=== PATIENT | male | born 1945 | race Caucasian/White ===

== ENCOUNTER → 2018-03-03 | Outpatient (CLI) | payer BC | LOC: COL.VAS 13:49 | DX: M79.89 Other specified soft tissue disorders (principal) ==

== ENCOUNTER 2020-03-20 15:43 | Inpatient (IN) | payer MEDICARE, BC ==
[~2020-03-20] VITALS: Ht 180.3 cm; Wt 83.2 kg
[2020-04-18] VITALS (11 sets, daily range): BP systolic 123–172; BP diastolic 51–80; PULSE 44–101; TEMP 98.3–98.6
[2020-04-18] MEDS ORDERED: COZAAR 50MG50 MG/TAB PO (09:06)
[2020-04-18] MEDS ORDERED: NORVASC 5MG5 MG/TAB PO (09:07)
[2020-04-18] MEDS ORDERED: PROTONIX 40MG T40 MG PO (09:08)
[2020-04-18] MEDS ORDERED: ZYRTEC 10MG10 MG PO (09:09)
[2020-04-18] MEDS ORDERED: SINGULAIR 110 MG/TAB PO (09:10)
[2020-04-18] MEDS ORDERED: ZOCOR 20MG20 MG PO (09:11)
[2020-04-18] MEDS ORDERED: CARDURA4 MG PO (09:11)
[2020-04-18] MEDS ORDERED: ZYLOPRIM 300MG300 MG PO (09:12)
[2020-04-18] MEDS ORDERED: FLONASEALLERGY NS (09:14)
[2020-04-18] MEDS ORDERED: MOBIC 7.5MG7.5 MG PO (09:15)
[2020-04-18] MEDS ORDERED: RT ADVAIR 228 DISKUS IH (09:15)
[2020-04-18] MEDS ORDERED: VTAMINC250TA PO (09:17)
[2020-04-18] MEDS ORDERED: IRON TABLETS325 MG PO (09:18)
[2020-04-18] MEDS ORDERED: PHARMASSURE ZIN50 MG PO (09:19)
--- NOTE | 2020-04-18 14:03 | NUR ---
Patient to room from PACU via bed. Alert and oriented x4. Denies pain. Patient does have occasional nonproductive cough, says this has been ongoing for him. Dressing to left hip CDI. Patient is able to wiggle toes on both feet. Identifies areas touched. Oriented to room. Will provide water and jello.
--- NOTE | 2020-04-18 16:26 | NUR ---
Sitting up in bed on iPad. Denies pain. Is able to move lower extremities. Ice pack to left hip. Dressing to left hip CDI. Patient denies needs at this time.
--- NOTE | 2020-04-18 17:44 | NUR ---
Rating pain in left hip 4/10 and would like pain medication. Administer as prescribed. Patient resting in bed. Has ice pack to left hip. Denies additional needs.
--- NOTE | 2020-04-18 18:26 | NUR ---
Sitting up in bed eating dinner. Says that the pain medication is starting to help alleviate some of the pain. Asks when he will get out of bed, explain that it will probably be around 2100 tonight. Patient verbalizes understanding and denies additional needs at this time.
--- NOTE | 2020-04-18 20:50 | NUR ---
Pt. sitting up in bed. Pt. is a&OX3, assessment complete. IV to lt. hand patent, IV fluids infusing per orders. Pt. reports pain to lt. hip at a 3 on pain scale at this time. Dressing to lt. hip CDI. Pt. denies further needs, call light within reach.
[2020-04-19 04:15] VITALS: BP 156/60; PULSE 68; TEMP 97
[2020-04-19 06:36] LABS: HEMOGLOBIN 11.6 g/dl (13.5-18.0)
[2020-04-19 06:37] LABS: HEMATOCRIT 34.7 % (42.0-52.0)
[2020-04-19 07:25] VITALS: BP 147/74; PULSE 80; TEMP 98.3
--- NOTE | 2020-04-19 07:55 | NUR ---
Sitting up in bed, just finished breakfast. Alert and oriented x4. Minimal pain at this time. Patient says that he was just given pain medication so should be good for a little bit. Remove dressing from left hip, minimal drainage noted on dressing. Edges to incision well approximated, no redness/swelling/discharge noted. Apply aquacel at this time. Patient has on meghan sunithae and scd's. Discuss therapy plan for theday. Patient says that he hopes he does well because he wants to go home. Denies additional needs at this time.
--- NOTE | 2020-04-19 09:51 | NUR ---
Sitting up in chair watching TV. Patient says that he ambulated in halls with PT and feels that he did okay. Having some increasing pain in left hip, would like pain medication to stay ahead of the pain. Administer pain medication as prescribed. Continues to express that he hopes to go home later today. Denies additional needs at this time.
--- NOTE | 2020-04-19 10:11 | NUR ---
Initial visit; Patient thanked Ice Hockey Coach for looking in on him and offering prayer and God's blessings.
[2020-04-19 10:26] VITALS: BP 148/66; PULSE 74; TEMP 97.7
--- NOTE | 2020-04-19 11:26 | NUR ---
Lead Burner met with the patient to complete intake. The patient lives in [place] with his , Jaimee. The patient has a cane he uses occassionally and is independent. The patient's PCP is Dr. Hughes and patient receives medications from [facility]. The patient does not have advanced directives in the EMR but states they are complete. The patient plans to return home at discharge with Jaimee providing transportation. The patient will start outpatient PT on 04/25 at [facility]. There are no additional needs.
--- NOTE | 2020-04-19 12:20 | NUR ---
Sitting in recliner watching TV. Denies pain, says that he notices it is sore and the pain increases some with movement but nothing at this time. Patient denies additional needs at this time.
[2020-04-19] MEDS ORDERED: ULTRAM 50MG TAB50 MG PO (13:35)
[2020-04-19] MEDS ORDERED: ROXICODONE 55 MG/TAB PO (13:35)
[2020-04-19] MEDS ORDERED: SENOKOT S 50 MG1 TAB PO (13:37)
[2020-04-19] MEDS ORDERED: CELEBREX 200MG200 MG PO (13:40)
--- NOTE | 2020-04-19 13:40 | NUR ---
Patient in room working with OT. Patient says that his pain is starting to "get up there". Administer pain medication as prescribed. Patient denies further needs at this time.
[2020-04-19] MEDS ORDERED: ASPI325T6 PO (13:41)
--- NOTE | 2020-04-19 15:05 | NUR ---
Review all discharge instructions with the patient. Denies questions and verbalizes understanding. Signs discharge paperwork. Discharge packet provided to the patient. Patient will call to let her know that he is ready for pickle solution maker and then will let staff know when she is at ER to pick him up.
--- NOTE | 2020-04-19 16:00 | NUR ---
Patient calls and says that his is at the ER entrance to pick him up. Patient assisted out to vehicle via wheelchair with all personal belongings.
== END 2020-04-19 16:00 | disposition home or self-care (01) | DRG 470 ==
LOC: JCC 04-18 07:30 → INPTSU 04-18 07:47 → ICU 04-18 07:47 → INPTSU 04-18 08:14 → JCC 04-18 10:30
PROVIDERS: ADMIT Orthopaedic Surgery
PROC: 0SRB0JZ Replacement of Left Hip Joint with Synthetic Substitute, Open Approach (ICD-10-PCS; principal; 2020-04-18 10:30)
DX: M16.12 Unilateral primary osteoarthritis, left hip (principal); J44.9 Chronic obstructive pulmonary disease, unspecified; E78.5 Hyperlipidemia, unspecified; K21.9 Gastro-esophageal reflux disease without esophagitis; I12.9 Hypertensive chronic kidney disease with stage 1 through stage 4 chronic kidney disease, or unspecified chronic kidney disease; N18.30 Chronic kidney disease, stage 3 unspecified; N40.0 Benign prostatic hyperplasia without lower urinary tract symptoms
CPT/HCPCS: A4314; A9284; C1713; C1776; J0690; J2250; J2274; J2704; J7030; J7120

== ENCOUNTER → 2020-04-14 | Outpatient (CLI) | payer MEDICARE, BC | LOC: COL.LAB 09:26 | DX: Z96.642 Presence of left artificial hip joint (principal) ==

== ENCOUNTER → 2020-09-01 | Outpatient (CLI) | payer MEDICARE, BC ==
[~2020-09-01] MED LIST: ASPI325T6 PO; CARDURA4 MG PO; CELEBREX 200MG200 MG PO; COZAAR 50MG50 MG/TAB PO; DOXYCYCLINE 10100 MG PO; FLONASEALLERGY NS; IRON TABLETS325 MG PO; MOBIC 7.5MG7.5 MG PO; NORVASC 5MG5 MG/TAB PO; PHARMASSURE ZIN50 MG PO; PREDNISONE20 MG PO; PROTONIX 40MG T40 MG PO; ROXICODONE 55 MG/TAB PO; RT ADVAIR 228 DISKUS IH; SENOKOT S 50 MG1 TAB PO; SINGULAIR 110 MG/TAB PO; ULTRAM 50MG TAB50 MG PO; VTAMINC250TA PO; ZOCOR 20MG20 MG PO; ZYLOPRIM 300MG300 MG PO; ZYRTEC 10MG10 MG PO
== END ==
LOC: COL.RAD 07:48
DX: S89.92XA Unspecified injury of left lower leg, initial encounter (principal); T36.95XA Adverse effect of unspecified systemic antibiotic, initial encounter; M79.661 Pain in right lower leg

== ENCOUNTER 2020-12-27 14:07 | Emergency (ER) | payer MEDICARE, BC ==
[~2020-12-27] VITALS: Ht 180.3 cm; Wt 79.5 kg
[~2020-12-27 14:07] MED LIST changes: -DOXYCYCLINE 10100 MG PO; -PREDNISONE20 MG PO
[2020-12-27 15:38] LABS: BASO % 0.4 % (0.0-2.0); EOS # 0.2 K/mm3 (0.0-0.7); EOS % 1.8 % (0-4.0); GRAN % 80.8 % (42.2-75.2); HEMOGLOBIN 11.8 g/dl (13.5-18.0); LYMPH # 0.7 K/mm3 (1.2-3.4); LYMPH % 6.6 % (20.0-51.0); MEAN CELL VOLUME 98 fl (80.0-100.0); MEAN CORPUSCULAR HEMOGLOBIN 32 pg (27.0-31.0); MEAN CORPUSCULAR HGB CONC 33 g/dl (33.0-37.0); MEAN PLATELET VOLUME 10.4 fl (7.4-10.4); MONO % 10.1 % (1.7-9.3); PLATELET COUNT 178 K/mm3 (130-400); REDCELL DISTRIBUTION WIDTH-CV 13.8 % (11.5-14.5)
[2020-12-27 15:40] LABS: HEMATOCRIT 36.2 % (42.0-52.0)
[2020-12-27 16:00] LABS: ALANINE AMINOTRANSFERASE 9 U/L (0-55); ALBUMIN 3.2 gm/dL (3.4-4.8); ALKALINE PHOSPHATASE 68 U/L (0-750); ANION GAP 10 mmol/L (7-16); AST,SGOT 12 U/L (5-34); BILIRUBIN,TOTAL 0.4 mg/dL (0.2-1.2); BLOOD UREA NITROGEN 31 mg/dL (8-26); CALCIUM 9.2 mg/dL (8.4-10.2); CARBON DIOXIDE 18 mmol/L (23-31); CHLORIDE 108 mmol/L (98-107); CREATININE, serum 1.86 mg/dL (0.72-1.25); GLUCOSE 124 mg/dL (70-99); POTASSIUM 4.2 mmol/L (3.5-4.5); SODIUM 136 mmol/L (136-145); TOTAL PROTEIN 6.2 gm/dL (6.2-8.1)
[2020-12-27 16:07] LABS: TROPONIN-I < 0.010 ng/mL (0.00-0.033)
[2020-12-27] MEDS ORDERED: DOXYCYCLINE 10100 MG PO (16:29)
[2020-12-27] MEDS ORDERED: PREDNISONE20 MG PO (16:29)
[2020-12-27 16:30] VITALS: BP 147/76; PULSE 69; TEMP 98.1
== END 2020-12-27 16:40 | disposition home or self-care (01) ==
LOC: COL.ER 14:07
PROVIDERS: Nurse Practitioner
DX: J45.909 Unspecified asthma, uncomplicated (principal); I10 Essential (primary) hypertension; Z87.891 Personal history of nicotine dependence; Z20.822 Contact with and (suspected) exposure to COVID-19; Z79.899 Other long term (current) drug therapy